=== PATIENT | male | born 1995 | race Caucasian/White ===

== ENCOUNTER 2021-03-15 19:47 | Emergency (ER) | payer SELFPAY ==
[~2021-03-15] VITALS: Ht 177.8 cm; Wt 86.0 kg
[2021-03-15 23:00] VITALS: BP 131/75
[2021-03-15] MEDS ORDERED: TETANUS, DIPHTHERIA, PERTUSSIS VAC/PF 0.5ML (>7YR OLD) IM ONE (23:00)
[2021-03-16] MEDS ORDERED: HALOPERIDOL LACTATE 5MG/ML VIAL IM ONE (00:30)
[2021-03-16] MEDS ORDERED: CLON2TAB MT (01:22)
[2021-03-16] MEDS ORDERED: AMOX-424 MT (01:26)
[2021-03-16] MEDS ORDERED: BUPR1FIL3 SL (01:29)
== END 2021-03-15 23:45 | disposition home or self-care (01) ==
LOC: ER 19:47
DX: S05.11XA Contusion of eyeball and orbital tissues, right eye, initial encounter (principal); I49.9 Cardiac arrhythmia, unspecified; W18.30XA Fall on same level, unspecified, initial encounter; Y93.89 Activity, other specified; Y92.89 Other specified places as the place of occurrence of the external cause; Y99.8 Other external cause status
CPT/HCPCS: 90471; 90715; 93005; 99284